=== PATIENT | female | born 1985 | race Two or more races ===

== ENCOUNTER 2017-05-30 01:48 | Emergency (ER) | payer MEDICAID ==
[~2017-05-30] VITALS: Ht 167.6 cm; Wt 108.4 kg
[2017-05-30 02:00] VITALS: BP 109/69
== END 2017-05-30 05:57 | disposition left against medical advice (07) ==
LOC: ER 01:52
DX: R42 Dizziness and giddiness (principal); Z53.21 Procedure and treatment not carried out due to patient leaving prior to being seen by health care provider